=== PATIENT | female | born 1985 | race Caucasian/White ===

== ENCOUNTER 2019-04-27 00:23 | Inpatient (IN) | payer OTHER ==
[2019-04-27] MEDS ORDERED: PROMETHAZINE 25 MG/ML VIAL ONE (00:50)
[2019-04-27] MEDS ORDERED: BUTORPHANOL 1 MG/ML INJ ONE (00:50)
[2019-04-27] MEDS ORDERED: BUTORPHANOL 1 MG/ML INJ IV PRN (01:02)
[2019-04-27] MEDS ORDERED: PENICILLIN 5 MU in NA CHLORIDE 0.9% 100 ML IV ONE (01:02)
[2019-04-27] MEDS ORDERED: PROMETHAZINE 25 MG/ML VIAL IV PRN (01:02)
[2019-04-27] MEDS ORDERED: Ringers Lactate 1,000 ML IV PRN (01:02)
[2019-04-27] MEDS ORDERED: CARBOPROST TROME 250 MCG/ML IM PRN ×2 (01:02→02:57)
[2019-04-27] MEDS ORDERED: METHYLERGONOVINE 0.2MG/ML AMP IM PRN ×2 (01:02→02:57)
[2019-04-27 01:24] LABS: Absolute Lymphocytes (CBC) 2.6 K/uL (0.7-4.9); Basophils % 0.2 % (0-1.3); Hematocrit 33.5 % (36.0-45.0); Lymphocytes % 20.2 % (15.3-44.8); MPV 9.1 fL (7.6-11.3); RBC Red Blood Cell Count 3.64 M/uL (3.86-4.86)
[2019-04-27] MEDS ORDERED: ROPIVACAINE HCL 100 ML IV PRN (01:40)
[2019-04-27] MEDS ORDERED: FENTANYL CITR 100 MCG/2 ML IV ONE (01:42)
[2019-04-27] MEDS ORDERED: ROPIVACAINE HCL 0.2% 20ML AMP IV ONE (01:42)
[2019-04-27] MEDS ORDERED: OXYTOCIN/LR 20 UNIT/1,000 ML BAG IV SCH ×2 (02:00→03:00)
[2019-04-27] MEDS ORDERED: Ringers Lactate 1,000 ML IV SCH (02:00)
[2019-04-27] MEDS ORDERED: LIDOCAINE 1% MPF 30 ML VIAL ONE (02:32)
[2019-04-27] MEDS ORDERED: METHYLERGONOVINE 0.2 MG TAB PO PRN (02:57)
[2019-04-27] MEDS ORDERED: Rho(D) IG (HUMAN) 300 MCG SYR IM PRN (02:57)
[2019-04-27] MEDS ORDERED: IBUPROFEN 200 MG TAB PO PRN (02:57)
[2019-04-27] MEDS ORDERED: Oxycodone HCl/Acetaminophen 1 TAB TAB PO PRN (02:57)
[2019-04-27] MEDS ORDERED: ONDANSETRON 4 MG (ODT) TAB PO PRN (02:57)
--- NOTE | 2019-04-27 03:00 | P.BOP ---
Preoperative diagnosis: 39 wk , labor Postoperative diagnosis: same, delivery viable male infant Primary procedure: SCVD male Secondary procedure: right midline epis with repair Estimated blood loss: 250 Anesthesia: Local Complications: None Transferred to: Other (274) Condition: Good
[2019-04-27 07:29] VITALS: BMI 22.4
--- NOTE | 2019-04-27 08:29 | PREOPHP ---
Date of Admission: 04/27/2019 History: Lore is a 33-year-old female, 3, para 2-0-0-2 at term, followed by me during this without complications other than advanced maternal age. She started con tracting earlier this evening, presents to Labor and Delivery, is noted to be 4 cm, vertex presentati on on admission. Past Medical History: Please see record. Family History: Please see record. Review of Systems: She reports no recent cough, cold, fever, or chills. No recent nausea or vomiting. She denies any b reast lumps or knots. She denies any bowel or bladder issues. has been active. Physical Examination: General: Reveals a female, in moderate discomfort. Neck: Supple without adenopathy or thyromegaly. Lungs: Clear. Cardiac: Regular rate and rhythm without murmurs. Breasts: Not examined. Abdomen: Estimated weight 7+ pounds to 8 pounds. Pelvic: Cervix noted to be 4 cm dilated, vertex presentation -2 station on admission. Extremities: No cyanosis, clubbing, or edema. Impression: Term , active labor. Plan: Patient will be admitted for delivery. MEERA/VIVIEN Voice ID: [id number]
[2019-04-27 21:19] LABS: RPR (Rapid Plasma Reagin) NON-REACT (NON-REACT)
[2019-04-28 08:39] VITALS: BP 114/74; TEMP 97.9
--- NOTE | 2019-04-28 15:03 | DS ---
Date of Discharge: 04/28/2019 Final Hospital Discharge Diagnoses: 1.39 week , delivered. 2.Positive beta-strep carriage. 3.Iron-deficiency anemia. Complications: None. Procedures: Placement of epidural catheter, spontaneous controlled vaginal delivery of a viable male , right midline episiotomy with repair. Hospital Course: Patient is a 33-year-old female, 3, para 2-0-0-2 at 39 we eks' gestation, admitted in labor. She delivered a 7 pound male , 9 and 9 over a right m idline episiotomy with epidural anesthesia. After first stage of labor of 2-1/2 hours, second stage of labor of 5 minutes. She was dismissed on her first day, ambulatory, on a select diet w ith routine post vaginal delivery activity restrictions, to be seen back in my office in 1 week, to [facility] taking her iron and vitamins with prescription for Tylenol No. 3 #10 for pain relief . Lab work included an admission hemoglobin and hematocrit of 11.8 and 33.5, dismissal of 33.9. She is Rh negative. Blood type, cord blood type was Rh negative likewise, so she did not require RhoGAM . She is RPR nonreactive. MEERA/VIVIEN Voice ID: [id number] Report ID: [id number]
--- NOTE | 2019-04-28 18:18 | OP ---
Surgeon: Jignesh Weinstein MD Ms. Mehta is 33-year-old female, 3, para 2-0-0-2 at 39 weeks' gestation, admitted in active labor. Because of beta strep carriage, she received 1 dose of penicillin for anti biotic prophylaxis. She had a first stage of labor of 2-1/2 hours, second stage of labor 5 minutes. She delivered with epidural anesthesia a 7 pound male , 9 and 9 over a right midline epi siotomy. After delayed cord clamping, the was placed on mother's upper abdomen. Cord blood w as obtained. The placenta was spontaneously expelled and appeared to be intact. Right midline episi otomy was repaired in the usual fashion with 3-0 Vicryl suture. Estimated total blood loss was less than 250 mL. Patient tolerated all procedures well, received 1 single mg dose of Stadol for IV analg esia, 12.5 mg of Phenergan x1 prior to the placement of epidural catheter. MEERA/VIVIEN Voice ID: [id number] Report ID: [id number]
[2019-04-29 21:54] LABS: HBsAG Nonreactive (Nonreactive)
== END 2019-04-28 10:30 | disposition home or self-care (01) | DRG 807 ==
LOC: L&D 00:23 → 2ND-WC 00:42
PROVIDERS: ADMIT Pediatrics; ATTEND Specialist
PROC: 0W8NXZZ Division of Female Perineum, External Approach (ICD-10-PCS; principal; 2019-04-27)
PROC: 10E0XZZ Delivery of Products of Conception, External Approach (ICD-10-PCS; 2019-04-27)
DX: O99.824 Streptococcus B carrier state complicating childbirth (principal); Z37.0 Single live birth; O99.02 Anemia complicating childbirth; D50.9 Iron deficiency anemia, unspecified; Z3A.39 39 weeks gestation of pregnancy
CPT/HCPCS: 36415; 85014; 85025; 86592; 86901; 87340; J0595; J2210; J2550; J2590; J2795; J3010; J7120